=== PATIENT | male | born 1955 | race Caucasian/White ===

== ENCOUNTER → 2024-04-11 | Outpatient (CLI) | payer MEDICARE, SELFPAY ==
--- NOTE | 2024-04-11 16:30 | XR_ITS ---
Examination: Knee, right , 3 views Technique: Knee AP, lateral, oblique 3 views Date and time of exam: April 11, 2024 1617 hrs. Indications: Right knee pain beginning 2 years ago. Findings: Mild to moderate tricompartment osteoarthritis No fracture or dislocation No opaque foreign body Impression: Mild to moderate tricompartment osteoarthritis
== END | disposition home or self-care (01) ==
PROVIDERS: PCP Nurse Practitioner Family; Referring Provider Nurse Practitioner Family; Visit Provider Nurse Practitioner Family
DX: M17.11 Unilateral primary osteoarthritis, right knee (principal)
CPT/HCPCS: 73562